=== PATIENT | female | born 1985 | race Two or more races ===

== ENCOUNTER 2016-06-04 09:29 | Emergency (ER) | payer OTHER ==
[2016-06-04 10:41] LABS: URINE BILIRUBIN NEGATIVE (NEGATIVE); URINE BLOOD 4+ (NEGATIVE); URINE GLUCOSE (UA) NEGATIVE (NEGATIVE); URINE LEUKOCYTE ESTERASE TRACE (NEGATIVE); URINE NITRITE NEGATIVE (NEGATIVE); URINE PROTEIN TRACE (NEGATIVE); URINE UROBILINOGEN NORMAL (0-1 mg/dl)
[2016-06-04 10:42] LABS: URINE APPEARANCE SL CLOUDY; URINE COLOR YELLOW
[2016-06-04 10:48] LABS: URINE EPITHELIAL CELLS 15-20 /hpf; URINE RBC >100 /hpf; URINE WBC RARE /hpf
[2016-06-04 10:49] LABS: URINE BACTERIA TRACE; URINE MUCUS 2+; URINE OTHER SPERM PRESENT
== END 2016-06-04 11:18 | disposition home or self-care (01) ==
LOC: ED 09:29
DX: O20.0 Threatened abortion (principal); Z3A.10 10 weeks gestation of pregnancy

== ENCOUNTER 2016-06-19 02:03 | Emergency (ER) | payer OTHER | END 2016-06-19 03:10 | disposition home or self-care (01) | LOC: ED 02:03 | DX: O46.91 Antepartum hemorrhage, unspecified, first trimester (principal); Z3A.12 12 weeks gestation of pregnancy ==

== ENCOUNTER 2016-06-21 14:20 | Outpatient (CLI) | payer OTHER | END 2016-06-21 14:21 | disposition home or self-care (01) | LOC: NC 14:20 | PROVIDERS: ATTEND Advanced Practice Midwife | DX: O09.291 Supervision of pregnancy with other poor reproductive or obstetric history, first trimester (principal); Z98.84 Bariatric surgery status; K91.1 Postgastric surgery syndromes; O21.0 Mild hyperemesis gravidarum; Z3A.00 Weeks of gestation of pregnancy not specified ==